=== PATIENT | male | born 2000 | race Caucasian/White ===

== ENCOUNTER 2022-02-10 03:42 | Observation (INO) | payer BC, SELFPAY ==
[2022-02-10] VITALS (24 sets, daily range): BP systolic 105–155; BP diastolic 41–86; PULSE 66–106; RESP 12–22; TEMP 36.2–37.2; O2SAT 93–99; BMI 41.2; BMI 44.6
--- NOTE | 2022-02-10 04:16 | CT_ITS ---
PROCEDURE INFORMATION: Exam: CT Left Lower Extremity With Contrast, Knee Exam date and time: 02/10/2022 4:30 AM Age: 21 years old Clinical indication: Pain; Patient HX: Red inflammed area left knee possible abcess; Additional info: Abscess TECHNIQUE: Imaging protocol: CT of the Left lower extremity with intravenous contrast was performed. Exam focused on the knee. Total images: 1 Radiation optimization: All CT scans at this facility use at least one of these dose optimization techniques: automated exposure control; mA and/or kV adjustment per patient size (includes targeted exams where dose is matched to clinical indication); or iterative reconstruction. Contrast material: ISOVUE; Contrast volume: 120 ml; Contrast route: IV; COMPARISON: No relevant prior studies available. FINDINGS: Bones/joints: Findings of cellulitis noted superficial to the questionable abscess and anterior to the knee joint. Lateral positioning of the patella could indicate chronic lateral patellar strain/prior injury of the medial retinaculum. No dislocation. Chronic fragmentation of the tibial tubercle. Soft tissues: Medial to the left knee, thick walled and peripherally dense 5 x 6 x 10 cm fluid collection extends to the deep margin of the skin. There is some internal fat content. Differential diagnosis is older seroma/hematoma versus secondary abscess formation. IMPRESSION: 1. Medial to the left knee, thick walled and peripherally dense 5 x 6 x 10 cm fluid collection extends to the deep margin of the skin. There is some internal fat content. Differential diagnosis is older seroma/hematoma versus secondary abscess formation. Recommend clinical correlation. 2. Findings of cellulitis noted superficial to the questionable abscess and anterior to the knee joint. 3. Lateral positioning of the patella could indicate chronic lateral patellar strain/prior injury of the medial retinaculum. No dislocation. No acute fracture identified.
[2022-02-10 04:26] LABS: Basophils # 0.4 K/mm3 (0-0.2); Basophils % 2.9 % (0.1-2.0); Eosinophils # 0.2 K/mm3 (0.0-0.4); Eosinophils % 1.3 % (0.1-12.0); Hematocrit 41.2 % (42.0-52.0); Hemoglobin 13.8 g/dL (14.1-18.0); Lymphocytes # 1.7 K/mm3 (0.7-4.5); Mean Corpuscular HGB Conc 33.4 g/dL (31.8-35.4); Mean Corpuscular Hemoglobin 30.1 pg (27.0-31.2); Mean Platelet Volume 8.2 fl (7.4-10.4); Monocytes # 0.5 K/mm3 (0.1-1.0); Monocytes % 4.6 % (1.7-9.3); Neutrophils # 9.1 K/mm3 (1.8-7.8); Neutrophils % 77.2 % (37.0-80.0); Platelet Count 351 K/mm3 (142-424); Red Blood Count 4.58 M/mm3 (4.60-6.20); Red Cell Distribution Width 13.1 % (11.5-17.5); White Blood Count 11.8 K/mm3 (4.8-10.8)
[2022-02-10 04:38] LABS: Alanine Aminotransferase 42 U/L (12-78); Albumin Level 4.1 g/dl (3.5-5.0); Albumin/Globulin Ratio 1.2 (1.1-1.8); Alkaline Phosphatase 102 U/L (38-126); Anion Gap 12.7 mEq/L (5-15); Aspartate Amino Transferase 41 U/L (17-59); Bilirubin,Total 0.5 mg/dl (0.2-1.3); Blood Urea Nitrogen 18 mg/dl (9-20); Calcium 8.8 mg/dl (8.4-10.2); Carbon Dioxide 30 mmol/L (22.0-30.0); Chloride 101 mmol/L (98-107); Creatinine Clearance Estimated 223 mL/min (50-200); Estimated Glomerular Filt Rate 84 ml/min (>60); GFR (African American) 101 ML/MIN (>60); Globulin 3.5 g/dL (1.3-3.2); Glucose 100 mg/dl (74-100); Lactic Acid 0.8 mmol/L (0.7-2.1); Potassium 3.7 mmoL/L (3.5-5.1); Sodium 140 mmol/L (136-145); Total Protein,Serum 7.6 g/dl (6.3-8.2)
[2022-02-10 04:43] LABS: C-Reactive Protein 106.6 mg/L (0-4)
[2022-02-10 04:48] LABS: Erythrocyte Sedimentation Rate 51 mm/hr (0-15)
--- NOTE | 2022-02-10 05:22 | HMH.EDSKAF ---
ED Disposition Clinical Impression: SIRS (systemic inflammatory response syndrome) Abscess of skin or subcutaneous tissue Qualifiers: Site of cutaneous abscess: extremity Site of cutaneous abscess of extremity: lower extremity Laterality: left Qualified Code(s): L02.416 - Cutaneous abscess of left lower limb Disposition: Admitted as Observation Condition on Discharge: Good Instructions: DI for Skin Abscess Referrals: Provider,Referral, [Primary Care Provider] - - Critical Care Critical Care Time: No Attestation: On 02/10/22, the high probability of a clinically significant, sudden or life threatening deterioration of the following system(s) required my full and direct attention, intervention and personal management. The time I documented below is in addition to time spent performing reported procedures but includes the following listed in this critical care notation. Medical Decision Making - Medical Records Medical records reviewed: Yes: I reviewed the patient's medical records. - Rudy Inquiry Pt receiving controlled substance: No Vital Signs: 02/10/22 03:45 Temperature 98.9 F Temperature Source Oral Pulse Rate [Left] 106 H Respiratory Rate 22 Blood Pressure [Right Arm] 144/86 H Blood Pressure Mean [Right Arm] 105 02 Sat by Pulse Oximetry 98 Oxygen Delivery Method Room Air - Lab Data Lab results reviewed: Yes: I reviewed the patient's lab results. Lab Results 02/10/22 04:15: WBC 11.8 H, RBC 4.58 L, Hgb 13.8 L, Hct 41.2 L, MCV 90.0, MCH 30.1, MCHC 33.4, RDW 13.1, Plt Count 351, MPV 8.2, Neut % (Auto) 77.2, Lymph % (Auto) 14.0, [place] % (Auto) 4.6, Eos % (Auto) 1.3, Baso % (Auto) 2.9 H, Neut # (Auto) 9.1 H, Lymph # (Auto) 1.7, [place] # (Auto) 0.5, Eos # (Auto) 0.2, Baso # (Auto) 0.4 H, ESR 51 H 02/10/22 04:15: Sodium 140, Potassium 3.7, Chloride 101, Carbon Dioxide 30, Anion Gap 12.7, BUN 18, Creatinine 1.10, Estimated Creat Clear 223, Estimated GFR 84, Est GFR ( Amer) 101, Glucose 100, Calcium 8.8, Total Bilirubin 0.5, AST 41, ALT 42, Alkaline Phosphatase 102, C-Reactive Protein 106.6 H, Total Protein 7.6, Albumin 4.1, Globulin 3.5 H, Albumin/Globulin Ratio 1.2 02/10/22 04:15: Lactate 0.8 02/10/22 04:15: Procalcitonin 0.100 Result diagrams: 02/10/22 04:15 02/10/22 04:15 Orders (Tests/Meds): ED MEDICATIONS Generic Name Dose Route Start Last Admin Trade Name Freq PRN Reason Stop Dose Admin Sodium Chloride 1,000 mls @ 999 mls/hr 02/10/22 04:30 02/10/22 04:28 Sod Chlor 0.9% 1000ml Bag IV 02/10/22 05:30 999 mls/hr .Q1H1M KYLIE Administration Discontinued Medications Generic Name Dose Route Start Last Admin Trade Name Freq PRN Reason Stop Dose Admin Acetaminophen 1,000 mg 02/10/22 04:19 02/10/22 04:28 Acetaminophen 500mg Tab PO 02/10/22 04:20 1,000 mg ONCE ONE Administration Iopamidol 100 ml 02/10/22 04:47 02/10/22 04:48 Iopamidol-370 (76%);100ml Bottle IV 02/10/22 04:48 100 ml ONCE ONE Administration Iopamidol 20 ml 02/10/22 04:47 02/10/22 04:48 Iopamidol-370 (76%); 50ml Vial IV 02/10/22 04:48 20 ml ONCE ONE Administration Ketorolac Tromethamine 30 mg 02/10/22 04:19 02/10/22 04:28 Ketorolac 30mg/Ml Vial IV 02/10/22 04:20 30 mg ONCE ONE Administration Methylprednisolone Sodium Succinate 125 mg 02/10/22 04:19 02/10/22 04:28 Methylprednisolone Sod Succ 125mg Vial IV 02/10/22 04:20 125 mg ONCE ONE Administration Sodium Chloride 10 ml 02/10/22 04:47 02/10/22 04:48 Sodium Chloride 0.9% 10ml Syr (Rad Only) IV 02/10/22 04:48 10 ml ONCE ONE Administration ORDERS Category Date Time Status Blood Culture Stat Micro 02/10/22 04:15 Received - CT Data CT Scan: Other (lt lower leg ) Time Received: 05:[address] Reviewed: Yes: I have viewed the radiologist's interpretation Preliminary Findings: Abnormal - Physician Consults Physician Consulted: edinson Reason -: Admission Medical Decision Narrative:
--- NOTE | 2022-02-10 05:35 | PC.NURSE ---
paged dr sam
--- NOTE | 2022-02-10 05:37 | PC.NURSE ---
ER speaking with Dr Fiore
[2022-02-10 05:49] LABS: Coronavirus 19, PCR Not Detected (NotDetected); Influenza A, PCR Not Detected (NotDetected); Influenza B, PCR Not Detected (NotDetected)
--- NOTE | 2022-02-10 06:04 | PC.NURSE ---
Called [facility] for vanc dosing, s/w Mendel
--- NOTE | 2022-02-10 06:16 | PC.NURSE ---
Called report to Onelia WAYNE
--- NOTE | 2022-02-10 06:29 | PC.NURSE ---
PT ARRIVED TO FLOOR VIA W/C FROM ED W/STAFF @ [id number]
--- NOTE | 2022-02-10 07:22 | PC.NURSE ---
Surgery electrician front team paged per Dr. Browning at 0713 Roberto returned call at 0716 Summer returned call at 0717 Natalia returned call at 0718
--- NOTE | 2022-02-10 08:09 | HMH.GSHP ---
HPI HPI: This is a 21-year-old gentleman who presented to the emergency department earlier this morning with increasing pain/swelling medial to the left knee. He states that he developed pain and swelling approximately 1 week ago. He was diagnosed with soft tissue abscess along the medial left lower extremity and the surgical service was contacted for management. [facility] History Medical History: Denies:: Cancer, Diabetes Mellitus Type 1, Diabetes Mellitus Type 2, MRSA *Have you ever received a pneumonia vaccine?: No *Have you received a flu vaccine this season?: No Amputation: No - *Social History Smoking Status: Current every day smoker Tobacco Type: e-cigarettes # Packs/Day (cigarettes): 1 Alcohol Intake: never *Occupational Status:: employed Housing: house *Travel in the last 8 weeks: None Family Hx:: No significant family history Review of Systems - Constitutional Denies chills - Eyes Denies change in vision - ENT Denies difficulty swallowing - *Cardiovascular Denies chest pain - *Respiratory Denies cough - *Gastrointestinal Denies abdominal pain - *Genitourinary Denies difficulty urinating - *Musculoskeletal Denies deformity - Integumentary/Breasts Reports boil - *Neurologic Denies abnormal speech, Denies seizure-like activity - Psychiatric Denies anxiety - Endocrine Denies cold intolerance - Hematologic/Lymphatic Denies easy bleeding - Allergic/Immunologic Denies GI upset with certain foods Meds Home Medications Medication Instructions Recorded Confirmed Type No Known Home Medications 02/10/22 02/10/22 History Allergies Allergy/AdvReac Type Severity Reaction Status Date / Time No Known Allergies Allergy Verified 02/10/22 06:45 Exam Vital signs and Labs for Last 24 Hours: Temp Pulse Resp BP Pulse Ox 98.6 F 77 17 132/68 96 02/10/22 07:36 02/10/22 07:36 02/10/22 07:36 02/10/22 07:36 02/10/22 07:36 Laboratory Results - last 24 hr 02/10/22 04:15: WBC 11.8 H, RBC 4.58 L, Hgb 13.8 L, Hct 41.2 L, MCV 90.0, MCH 30.1, MCHC 33.4, RDW 13.1, Plt Count 351, MPV 8.2, Neut % (Auto) 77.2, Lymph % (Auto) 14.0, [place] % (Auto) 4.6, Eos % (Auto) 1.3, Baso % (Auto) 2.9 H, Neut # (Auto) 9.1 H, Lymph # (Auto) 1.7, [place] # (Auto) 0.5, Eos # (Auto) 0.2, Baso # (Auto) 0.4 H, ESR 51 H 02/10/22 04:15: Sodium 140, Potassium 3.7, Chloride 101, Carbon Dioxide 30, Anion Gap 12.7, BUN 18, Creatinine 1.10, Estimated Creat Clear 223, Estimated GFR 84, Est GFR ( Amer) 101, Glucose 100, Calcium 8.8, Total Bilirubin 0.5, AST 41, ALT 42, Alkaline Phosphatase 102, C-Reactive Protein 106.6 H, Total Protein 7.6, Albumin 4.1, Globulin 3.5 H, Albumin/Globulin Ratio 1.2 02/10/22 04:15: Lactate 0.8 02/10/22 04:15: Procalcitonin 0.100 02/10/22 05:31: SARS-CoV-2 (PCR) Not detected, Influenza A Untype (PCR) Not detected, Influenza Type B (PCR) Not detected I & O for Last 24 hours: Intake & Output 02/07/22 02/08/22 02/09/22 02/10/22 11:59 11:59 11:59 11:59 Intake Total 1000 / 1000 Balance 1000 / 1000 Weight 359 lb 1.6 oz - Constitutional no acute distress - *Routine HEENT Exam Head: Present: normocephalic Eye: Present: EOMI ENT: Present: mucous membranes moist - *Routine Neck Exam Present: full ROM - Routine Chest/Breast/Axilla Exam Chest wall: Absent: tenderness - *Routine Respiratory Exam Absent: respiratory distress - *Routine Cardiovascular Exam Present: RRR - *Routine Abdominal Exam Present: soft - *Routine Rectal Exam Rectal:: deferred - *Routine Genitalia Exam Genitalia:: deferred - *Routine Extremities Exam Comments: Induration and focal erythematous blush along soft tissue medial to the left knee. No spreading cellulitis. - Routine Back/Spine/Pelvis Exam Back/Spine: Present: full ROM - *Routine Skin Exam Present: erythema (Focal at site of abscess) - *Routine Neurological Exam Present: alert, oriented X3 - Ro
--- NOTE | 2022-02-10 08:33 | HMH.OPNOTE ---
Date of procedure: 02/10/22 Pre-op Diagnosis:: Left lower extremity abscess (soft tissue medial to left knee) Post-op Diagnosis:: Same Procedure performed:: Incision and drainage of left lower extremity abscess Surgeon:: Carlin Browning MD RESIDENT ATHLETIC TRAINER:: Roberto Raygoza Anesthesia: LMA Estimated blood loss (mL): 5 Operative findings:: Abscess cavity and soft tissue medial to knee No obvious involvement of joint space Operative note:: After informed consent was obtained the patient was taken to the operating room and placed in the supine position. General anesthesia with a laryngeal mask airway was achieved. His medial left lower extremity was prepped and draped in a sterile fashion. A small incision overlying the central portion of the abscess cavity was opened with electrocautery. Fluid was obtained for gram stain/culture. Entire cavity was evacuated. A single large fluid-filled cavity in the soft tissue space medial to left knee was noted. There was no obvious involvement of the underlying joint space. Moistened Kerlix was utilized to pack the wound. The entire region was infiltrated with 1% lidocaine. Dressings were applied and the patient was transferred to recovery in stable condition. Condition: stable Disposition: PACU Specimens:: Fluid for gram stain/culture Complications:: No immediate
--- NOTE | 2022-02-10 08:38 | P.CONPHA_ITS ---
- Pharmacy Consult Date: 02/10/22 Time: 08:39 Referring provider: DR. GRANT Reason for Consult:: VANCOMYCIN DOSING Allergies and ADEs:: Allergies Allergy/AdvReac Type Severity Reaction Status Date / Time No Known Allergies Allergy Verified 02/10/22 06:45 Home Medications:: Home Medications Medication Instructions Recorded Confirmed Type No Known Home Medications 02/10/22 02/10/22 History Height: 1.91 m Weight: 162.885 kg Laboratory Results:: Laboratory Results - last 24 hr 02/10/22 04:15: WBC 11.8 H, RBC 4.58 L, Hgb 13.8 L, Hct 41.2 L, MCV 90.0, MCH 30.1, MCHC 33.4, RDW 13.1, Plt Count 351, MPV 8.2, Neut % (Auto) 77.2, Lymph % (Auto) 14.0, [place] % (Auto) 4.6, Eos % (Auto) 1.3, Baso % (Auto) 2.9 H, Neut # (Auto) 9.1 H, Lymph # (Auto) 1.7, [place] # (Auto) 0.5, Eos # (Auto) 0.2, Baso # (Auto) 0.4 H, ESR 51 H 02/10/22 04:15: Sodium 140, Potassium 3.7, Chloride 101, Carbon Dioxide 30, Anion Gap 12.7, BUN 18, Creatinine 1.10, Estimated Creat Clear 223, Estimated GFR 84, Est GFR ( Amer) 101, Glucose 100, Calcium 8.8, Total Bilirubin 0.5, AST 41, ALT 42, Alkaline Phosphatase 102, C-Reactive Protein 106.6 H, Total Protein 7.6, Albumin 4.1, Globulin 3.5 H, Albumin/Globulin Ratio 1.2 02/10/22 04:15: Lactate 0.8 02/10/22 04:15: Procalcitonin 0.100 02/10/22 05:31: SARS-CoV-2 (PCR) Not detected, Influenza A Untype (PCR) Not detected, Influenza Type B (PCR) Not detected Medical History: Denies:: Cancer, Diabetes Mellitus Type 1, Diabetes Mellitus Type 2, MRSA Assessment and Plan (1) Abscess of skin or subcutaneous tissue Status: Acute Qualifiers: Site of cutaneous abscess: extremity Site of cutaneous abscess of extremity: lower extremity Laterality: left Qualified Code(s): L02.416 - Cutaneous abscess of left lower limb Category: Medical Code(s): L02.91 - Cutaneous abscess, unspecified - Assessment and plan all Dx Assessment and Plan for all problems:: Objective: Patient: Floor: Age: 21 yo Serum creatinine: 1.1 mg/dL Height: 75.2 Inches Weight (kg): 162.9 Assessment: IBW (kg): 84.96 Dosing wt(kg): 162.9 Estimated Creatinine clearance (ml/min): 126.6 CRCL method: Cockcroft and Gault using ibw(default). Drug selected: Vancomycin Loading dose (mg): 0 Vd (liters): 130.3 (factor used: 0.8 L/kg) Carlos (hr-1): 0.109 Half life (hrs): 6.36 Recommended dose: 2500 mg Interval: 8 hrs Infusion time (hrs): 2.0 Predicted peak (mcg/mL): 29.6 Predicted trough (mcg/mL): 15.39 Total body weight is being used for vancomycin dosing. Recommendations: Give Vancomycin 2500 mg q 8 hrs with an expected Cpeak of 29.6 mcg/ml and an expected Ctrough of 15.39 mcg/ml. ----Vanco only - ignore for aminoglycosides----- CLvanco= 14.20 L/hr AUC 0-24 /SACHA Data: SACHA 0.5 mcg/mL: AUC/SACHA: 1056.3 SACHA 1.0 mcg/mL: AUC/SACHA: 528.2 --------- SACHA 1.5 mcg/mL: AUC/SACHA: 352.1 SACHA 2.0 mcg/mL: AUC/SACHA: 264.1 Thank you for the consult, will continue to follow.
--- NOTE | 2022-02-10 08:38 | HMH.ANESCL ---
[facility] Anesthesia Checklist - Structural Data Admitted From: Home Planned Operative Procedure/s: i/d lle Consent for Planned Operative Procedure(s) Verified: Yes - Airway Assessment C-Spine Mobility Assessed: Yes TMJ Mobility Assessed: Yes Dentition: Good Dentition - Neurological Assessment Level of Consciousness: Awake, Alert, Appropriate - Anesthesia Plan Anesthesia Risk discussed: Yes Anesthesia Plan: Verified ASA Class: II Anesthesia Type: General [facility] History I have reviewed the patient's past medical history: Yes Medical History: Denies:: Cancer, Diabetes Mellitus Type 1, Diabetes Mellitus Type 2, MRSA *Have you ever received a pneumonia vaccine?: No *Have you received a flu vaccine this season?: No Anesthesia experience/problems:: none Amputation: No - *Social History Smoking Status: Current every day smoker Tobacco Type: e-cigarettes # Packs/Day (cigarettes): 1 Alcohol Intake: never Substance Use Type: denies use *Occupational Status:: employed Housing: house *Travel in the last 8 weeks: None Family Hx:: No significant family history
--- NOTE | 2022-02-10 08:40 | P.PN_ITS ---
[facility] Anesthesia Record Part I Intake, IV Amount: 500 Estimated blood loss (mL): 0 Urine output (mL): 0 Blood Pressure: 119/60 SaO2: 96 Pulse Rate: 78 Respiratory Rate: 12 Temperature: 97.2 F Patient is:: Awake, Stable Stable to PACU at:: 08:35
--- NOTE | 2022-02-10 08:43 | HMH.PHAVTE ---
[facility] Pharmacy VTE Monitoring - Patient Demographics Admission date: 02/10/22 Report Date: 02/10/22 Time: 08:43 Allergies/Adverse Reactions: Patient Allergies No Known Allergies Allergy (Verified 02/10/22 06:45) Height: 1.91 m Weight: 162.885 kg Patient Problems: Current Active Problems Abscess of skin or subcutaneous tissue (Acute) SIRS (systemic inflammatory response syndrome) (Acute) - VTE Risk Labs: VTE Related Lab Results Hgb 13.8 g/dL (14.1-18.0) L 02/10/22 04:15 Hct 41.2 % (42.0-52.0) L 02/10/22 04:15 Plt Count 351 K/mm3 (142-424) 02/10/22 04:15 BUN 18 mg/dl (9-20) 02/10/22 04:15 Creatinine 1.10 mg/dl (0.66-1.25) 02/10/22 04:15 Estimated Creat Clear 223 mL/min (50-200) 02/10/22 04:15 VTE Score: 2 VTE Risk Level: Very Low Risk - Prophylaxis Types of VTE Prophylaxis: TEDS Knee High (MARISSA HOSE ORDER PLACED)
--- NOTE | 2022-02-10 10:11 | SUR.PHASEI ---
0835-pt arrived to pacu via stretcher w/lma in place. O2 @ 2lpm per n/c to lma. Pt stable. 0840-lma removed. pt sleeping comfortably. VSS. 0855-pt alert and talking. no c/o pain. coban placed on left leg. 904- detailed report called to Dianne WAYNE. Pt transported via stretcher to 2nd floor per S.Demetra WAYNE & Ash. Bed locked and lowered in lowest position. Mom and girlfriend @ BS. Pt alert and talking.
--- NOTE | 2022-02-10 14:38 | PC.NURSE ---
pt has bene up and ambulated in the castillo and room. he denies any pain and bandage is c/d/i.
--- NOTE | 2022-02-10 21:07 | SUR.OPER ---
anaerobic and aerobic cultures of left lower extremity abscess
--- NOTE | 2022-02-11 03:56 | PC.NURSE ---
No acute episodes/changes thus far. Dressing to L knee is c/d/i. Pt denies pain, states he is ready to go home. Pt has been ambulating and up to chair this shift with no issues. No complaints or needs voiced at this time. Call light in reach.
[2022-02-11 04:00] VITALS: BP 127/64; PULSE 61; RESP 16; TEMP 36.7; O2SAT 95; BMI 36.6
[2022-02-11 07:18] LABS: Blood Urea Nitrogen 15 mg/dl (9-20); Carbon Dioxide 29 mmol/L (22.0-30.0); Chloride 108 mmol/L (98-107); Creatinine Clearance Estimated 316 mL/min (50-200); Estimated Glomerular Filt Rate 141 ml/min (>60); GFR (African American) 171 ML/MIN (>60); Glucose 133 mg/dl (74-100); Sodium 141 mmol/L (136-145)
[2022-02-11 07:30] LABS: Basophils % 0.2 % (0.1-2.0); Eosinophils % 0.1 % (0.1-12.0); Hematocrit 38.1 % (42.0-52.0); Hemoglobin 12.7 g/dL (14.1-18.0); Lymphocytes # 1.4 K/mm3 (0.7-4.5); Lymphocytes % 10.4 % (10-50); Mean Corpuscular HGB Conc 33.3 g/dL (31.8-35.4); Mean Corpuscular Hemoglobin 29.9 pg (27.0-31.2); Mean Corpuscular Volume 89.8 fl (80-94); Mean Platelet Volume 8.8 fl (7.4-10.4); Monocytes # 0.6 K/mm3 (0.1-1.0); Monocytes % 4.5 % (1.7-9.3); Neutrophils # 11.4 K/mm3 (1.8-7.8); Neutrophils % 84.8 % (37.0-80.0); Platelet Count 393 K/mm3 (142-424); Red Blood Count 4.25 M/mm3 (4.60-6.20); White Blood Count 13.4 K/mm3 (4.8-10.8)
[2022-02-11 08:00] VITALS: BP 116/61; PULSE 79; RESP 18; TEMP 36.4; O2SAT 96; O2SAT 98
[2022-02-11 09:10] LABS: Vancomycin,Trough 15.2 ug/mL (5.0-10.0)
--- NOTE | 2022-02-11 09:41 | HMH.GSPN ---
Subjective Patient reports: no new complaints, feels better Progress Note: A&P (1) Abscess of skin or subcutaneous tissue Status: Acute Assessment and plan: Overall, doing well status post incision and drainage of soft tissue abscess medial to left knee. Discharge home with dressing changes, PO antibiotics, and outpatient follow-up Exam Vital signs and Labs for Last 24 Hours: Temp Pulse Resp BP Pulse Ox 97.6 F 79 18 116/61 98 02/11/22 08:00 02/11/22 08:00 02/11/22 08:00 02/11/22 08:00 02/11/22 08:00 Laboratory Results - last 24 hr 02/11/22 06:17: WBC 13.4 H, RBC 4.25 L, Hgb 12.7 L, Hct 38.1 L, MCV 89.8, MCH 29.9, MCHC 33.3, RDW 13.0, Plt Count 393, MPV 8.8, Neut % (Auto) 84.8 H, Lymph % (Auto) 10.4, [place] % (Auto) 4.5, Eos % (Auto) 0.1, Baso % (Auto) 0.2, Neut # (Auto) 11.4 H, Lymph # (Auto) 1.4, [place] # (Auto) 0.6, Eos # (Auto) 0.0, Baso # (Auto) 0.0 02/11/22 06:17: Sodium 141, Potassium 4.0, Chloride 108 H, Carbon Dioxide 29, Anion Gap 8.0, BUN 15, Creatinine 0.70 D, Estimated Creat Clear 316 H, Estimated GFR 141, Est GFR ( Amer) 171 D, Glucose 133 H, Calcium 8.0 L 02/11/22 08:27: Vancomycin Trough 15.2 H I & O for Last 24 hours: Intake & Output 02/08/22 02/09/22 02/10/22 02/11/22 11:59 11:59 11:59 11:59 Intake Total 1500 / 1500 1620 / 1620 Balance 1500 / 1500 1620 / 1620 Weight 359 lb 1.6 oz 297 lb 9.985 oz Microbiology Reports for the Last 24 Hours: Microbiology 02/10/22 08:25 Leg,Left - Abscess Gram Stain - Final 02/10/22 08:25 Leg,Left - Abscess Wound Culture - Preliminary - Constitutional no acute distress - *Routine Respiratory Exam Absent: respiratory distress - *Routine Cardiovascular Exam Present: RRR - *Routine Extremities Exam Present: full ROM Comments: Left lower extremity wound base and margin are clean. No spreading cellulitis.
--- NOTE | 2022-02-11 09:44 | HMH.DCSUM ---
General - General Admission date:: 02/10/22 Discharge date: 02/11/22 HPI HPI: This is a 21-year-old gentleman who presented to the emergency department earlier this morning with increasing pain/swelling medial to the left knee. He states that he developed pain and swelling approximately 1 week ago. He was diagnosed with soft tissue abscess along the medial left lower extremity and the surgical service was contacted for management. Hospital Course Hospital Course: He underwent incision and drainage of left lower extremity abscess. Please see operative report for detail. Postoperatively, he convalesced well. He remained afebrile with stable normal vital signs and was deemed appropriate for discharge on postoperative day 1. Objective Vital signs: Temp Pulse Resp BP Pulse Ox 97.6 F 79 18 116/61 98 02/11/22 08:00 02/11/22 08:00 02/11/22 08:00 02/11/22 08:00 02/11/22 08:00 no acute distress - *Routine HEENT Exam Head: Present: normocephalic Eye: Present: EOMI ENT: Present: mucous membranes moist - *Routine Neck Exam Present: full ROM - Routine Chest/Breast/Axilla Exam Chest wall: Absent: tenderness - *Routine Respiratory Exam Absent: respiratory distress - *Routine Cardiovascular Exam Present: RRR - *Routine Abdominal Exam Present: soft - *Routine Rectal Exam Patient deferred: visual exam - *Routine Exam Patient deferred: penile exam - *Routine Extremities Exam Present: full ROM Comments: Soft tissue abscess noted along medial left lower extremity (medial to left knee). No spreading cellulitis. - Routine Back/Spine/Pelvis Exam Back/Spine: Present: full ROM - *Routine Skin Exam Comments: No spreading cellulitis noted at site of left lower extremity abscess. - *Routine Neurological Exam Present: alert - Routine Psychiatric Exam Present: normal affect Results Labs on day of discharge: Labs from last 24 hours 02/11/22 02/11/22 02/11/22 08:27 06:17 06:17 WBC 13.4 H RBC 4.25 L Hgb 12.7 L Hct 38.1 L MCV 89.8 MCH 29.9 MCHC 33.3 RDW 13.0 Plt Count 393 MPV 8.8 Neut % (Auto) 84.8 H Lymph % (Auto) 10.4 [place] % (Auto) 4.5 Eos % (Auto) 0.1 Baso % (Auto) 0.2 Neut # (Auto) 11.4 H Lymph # (Auto) 1.4 [place] # (Auto) 0.6 Eos # (Auto) 0.0 Baso # (Auto) 0.0 Sodium 141 Potassium 4.0 Chloride 108 H Carbon Dioxide 29 Anion Gap 8.0 BUN 15 Creatinine 0.70 D Estimated Creat Clear 316 H Estimated GFR 141 Est GFR ( Amer) 171 D Glucose 133 H Calcium 8.0 L Vancomycin Trough 15.2 H Preliminary micro results at discharge 02/10/22 08:25 Wound Culture - Preliminary Leg,Left - Abscess DS: Diagnosis - Discharge Diagnosis (1) Abscess of skin or subcutaneous tissue Status: Acute Discharge Plan - Patient Discharge Instructions ACTIVITY: Continue current activity DIET: regular diet Additional Instructions: Dry dressing changes twice daily Patient Instructions: DI for Incision and Drainage of a Skin Abscess, Incision and Drainage of a Skin Abscess, DI for Surgical Site Infection, DI for Skin Abscess - Follow up Plan Follow up with: Carlin Browning MD [Staff Physician] - 1 week Disposition: Home, Self-Care Condition at discharge:: Improved Home Medications: Home Medications Medication Instructions Recorded Confirmed Type No Known Home Medications 02/10/22 02/10/22 History Prescriptions/Medication Reconciliation: No Action No Known Home Medications - Problem Reconciliation Problems Reviewed?: Yes
--- NOTE | 2022-02-11 11:33 | P.CONPHA_ITS ---
- Pharmacy Consult Date: 02/11/22 Time: 11:33 Referring provider: DR. GRANT Reason for Consult:: VANCOMYCIN LEVEL Allergies and ADEs:: Allergies Allergy/AdvReac Type Severity Reaction Status Date / Time No Known Allergies Allergy Verified 02/10/22 06:45 Home Medications:: Home Medications Medication Instructions Recorded Confirmed Type Hydrocod/Acet 5/325 mg [[place] 1 - 2 tab PO Q6HP PRN #9 tab 02/11/22 Rx 5/325mg tablet] Sulfamethoxazole/Trimethoprim 1 each PO BID #20 tab 02/11/22 Rx [Bactrim DS tablet] Height: 1.92 m Weight: 135 kg Laboratory Results:: Laboratory Results - last 24 hr 02/11/22 06:17: WBC 13.4 H, RBC 4.25 L, Hgb 12.7 L, Hct 38.1 L, MCV 89.8, MCH 29.9, MCHC 33.3, RDW 13.0, Plt Count 393, MPV 8.8, Neut % (Auto) 84.8 H, Lymph % (Auto) 10.4, [place] % (Auto) 4.5, Eos % (Auto) 0.1, Baso % (Auto) 0.2, Neut # (Auto) 11.4 H, Lymph # (Auto) 1.4, [place] # (Auto) 0.6, Eos # (Auto) 0.0, Baso # (Auto) 0.0 02/11/22 06:17: Sodium 141, Potassium 4.0, Chloride 108 H, Carbon Dioxide 29, Anion Gap 8.0, BUN 15, Creatinine 0.70 D, Estimated Creat Clear 316 H, Estima sharonda GFR 141, Est GFR ( Amer) 171 D, Glucose 133 H, Calcium 8.0 L 02/11/22 08:27: Vancomycin Trough 15.2 H Medical History: Denies:: Cancer, Diabetes Mellitus Type 1, Diabetes Mellitus Type 2, MRSA Assessment and Plan (1) Abscess of skin or subcutaneous tissue Status: Acute Qualifiers: Site of cutaneous abscess: extremity Site of cutaneous abscess of extremity: lower extremity Laterality: left Qualified Code(s): L02.416 - Cutaneous abscess of left lower limb Category: Medical Code(s): L02.91 - Cutaneous abscess, unspecified - Assessment and plan all Dx Assessment and Plan for all problems:: VANCOMYCIN TROUGH LEVEL THIS AM PRIOR THE 4TH DOSE WAS 15.2 MCG/ML. MD DISCHARGING TODAY WITH SCRIPT FOR BACTRIM DS BID.
--- NOTE | 2022-02-12 12:11 | CARE MANAGER ---
Contacted patient related to discharge from hospital. He states he is changing his dressing twice a day and has been taking medication as directed. He denies questions or concerns. Transferred to surgery office to schedule follow up.
== END 2022-02-11 12:28 | disposition home or self-care (01) ==
LOC: ER 04:19 → 2ND 05:48
PROVIDERS: Admitting Provider Surgery; Emergency Provider Emergency Medicine; Visit Provider Surgery
PROC: (CPT 10060; principal; 2022-02-10 08:00)
DX: L02.416 Cutaneous abscess of left lower limb (principal); F17.290 Nicotine dependence, other tobacco product, uncomplicated
CPT/HCPCS: 10060; 36415; 73701; 80048; 80053; 80202; 83605; 84145; 85025; 85651; 86140; 87040; 87070; 87075; 87077; 87186; 87205; 96375; 99285; C9803; G0378; J2405; J3370; Q9967; U0003; U0005

== ENCOUNTER 2022-12-17 16:05 | Emergency (ER) | payer SELFPAY ==
[2022-12-17 16:15] VITALS: BP 138/77; PULSE 98; RESP 20; TEMP 37.1; O2SAT 100; BMI 47.2
--- NOTE | 2022-12-17 16:33 | EXP.UTC ---
Discharge Plan Disposition Patient Disposition: Home, Self-Care Condition: Good Prescriptions Prescriptions: New cefdinir 300 mg capsule 300 mg PO BID Qty: 20 0RF ondansetron 4 mg tablet,disintegrating 4 mg PO Q8H PRN (Reason: nausea and vomiting) Qty: 10 0RF Referrals Follow up/Referrals: Provider,Referral, [Primary Care Provider] - See instructions Activity Restrictions/Add. Instructions Additional Instructions/Restrictions: *Monitor Temp, Over the counter Motrin or Tylenol as directed/as needed Tylenol every 4 hours and Motrin every 6 hours (as long as your family doctor has told you that you can take it) for fever or pain. and straight to ER if unable to lower temp less than 101.0 after medication given *Warm salt water gargles may help to soothe the throat *Throat Lozenges? *Warm fluids like tea with honey may help to soothe the throat? *Sleep elevated *Humidifier/Vaporizer Your throat swab was sent for culture. Those results are typically sent to your primary care. Be sure to follow up in 2-3 days with your family doctor/primary care physician if no improvement so they can review those result and treat if necessary. If you don?t have a primary care doctor, I recommend you get one but in the mean time, you will have to return to a walk in clinic Follow up IMMEDIATELY for new or worsening symptoms or no Noticeable improvement over the next 48-72 hours. 911 for difficulty breathing or swallowing You were tested for today for COVID19 your test result should be back in the next 24-48 hours, you may check your results on the [facility] Clinical Impressions Clinical Impression: Strep throat Stand Alone Forms Stand Alone Forms: Work/School Release Instructions Patient Instructions: DI for Strep Throat, Strep Throat Discharge ED Provider: Isabelle San [facility] [place] HPI General Stated complaint: Covid Test only Mode of Arrival: Ambulatory Source of Information: Patient Limitations: No Limitations Time Seen by Provider: 12/17/22 16:33 Description of Symptoms (Recalled from Triage Doc. by RN): B[place], dizzy, cough, vomit, diarrhea HEENT Symptoms (Recalled from RN notes): Yes Resp Symptoms (Recalled from RN notes): No Skin Symptoms (Recalled from RN notes): No MS Symptoms (Recalled from RN notes): No Functional Status (Recalled from RN notes): n/a History of Present Illness Provider Complaint: Patient states that he woke up yesterday feeling tire, achy, chills, headache sore throat and N/V/D States that feels like he may have COVID and wanted to get tested Feels like he may have COVID wanting to get a COVID test Related Data Previous Rx's Medication Instructions Recorded cefdinir 300 mg capsule 300 mg PO BID #20 caps 12/17/22 ondansetron 4 mg disintegrating 4 mg PO Q8H PRN nausea and 12/17/22 tablet vomiting #10 tabs Allergies Allergy/AdvReac Type Severity Reaction Status Date / Time No Known Allergies Allergy Verified 12/17/22 16:26 Worker's Comp Is this a Worker's Comp case?: No PFSH PFS Disclaimer: The information contained in this section may have been updated after the patient was seen, as this information can be updated by other users. Social History Smoking Status: Current every day smoker tobacco type: e-cigarettes alcohol intake: never substance use type: denies use current occupational status: employed Travel in the last 8 weeks: None housing: house ROS Obtained: Yes All systems reviewed & no additional complaints except as documented and Yes Systems reviewed as appropriate & no additional complaints except as documented Constitutional Constitutional: Reports system reviewed and no additional complaints, except as documented, Reports as per HPI, Reports body ache, Reports chills, Reports fever(s) and Reports headache(s) Eyes Eyes: Reports system reviewed and no additional complaints,
[2022-12-17 16:45] LABS: UTC Strep Screen (Rapid) Positive (Negative)
[2022-12-17 17:03] VITALS: BP 138/77; PULSE 98; RESP 20; TEMP 37.1; O2SAT 100
== END 2022-12-17 17:03 | disposition home or self-care (01) ==
PROVIDERS: Emergency Provider Nurse Practitioner
DX: J02.0 Streptococcal pharyngitis (principal); R51.9 Headache, unspecified; R05.1 Acute cough; R11.2 Nausea with vomiting, unspecified; Z20.822 Contact with and (suspected) exposure to COVID-19
CPT/HCPCS: 87880; 99212; 99214; C9803; G0463; U0003; U0005